=== PATIENT | male | born 1970 | race African-American/Black ===

== ENCOUNTER 2023-02-05 16:44 | Emergency (ER) | payer OTHER, MEDICAID ==
[~2023-02-05] VITALS: Ht 180.3 cm; Wt 90.0 kg
[2023-02-05 16:58] VITALS: O2SAT 99
[2023-02-05] MEDS ORDERED: IBUPROFEN 400MG TABLET PO ONE (17:15)
[2023-02-05] MEDS ORDERED: ACETAMINOPHEN 325MG TABLET PO ONE (17:15)
[2023-02-05 17:58] VITALS: BP 140/65; PULSE 80; RESP 18; TEMP 98
== END 2023-02-05 17:59 ==
LOC: ER 16:44
DX: R07.89 Other chest pain (principal)
CPT/HCPCS: 71045; 99283